=== PATIENT | female | born 1945 | race Hispanic/Latino ===

== ENCOUNTER 2018-10-14 13:09 | Outpatient (CLI) | payer MEDICARE, OTHER | END 2018-10-14 13:10 | disposition home or self-care (01) | LOC: RAD 13:09 ==

== ENCOUNTER 2018-11-26 14:53 | Outpatient (CLI) | payer MEDICARE, OTHER | END 2018-11-26 14:54 | disposition home or self-care (01) | LOC: RAD 14:53 ==